=== PATIENT | female | born 1990 | race Caucasian/White ===

== ENCOUNTER 2018-03-05 21:16 | Emergency (ER) | payer MEDICAID ==
[2018-03-05] MEDS ORDERED: BUPRENORPHINE HCL 2 MG SUBLINGUAL TABLET SL ONE (22:47)
[2018-03-05] MEDS ORDERED: ONDANSETRON ODT 4 MG TAB (6 TAB/ER DISP) PO PRN (23:18)
--- NOTE | 2018-03-05 23:19 | ER Document Report ---
ED General - General Chief Complaint: Drug Abuse Stated Complaint: POSSIBLE WITHDRAWAL Time Seen by Provider: 03/05/18 22:32 Notes: Patient is a 27 year old female with a past medical history of opiate abuse currently being treated with Suboxone who presents with withdrawal symptoms. The patient relates that she moved from [place] 4 days ago and states that she has not had any Suboxone since that time. She notes tremulousness, insomnia, nausea, diarrhea and abdominal cramping similar to when she has chronic opiate withdrawal in the past she states that she is trying to get into a Suboxone clinic here but that is she is having some difficulty doing so. She denies any fever, vomiting, headache, neck pain, focal weakness or numbness. Nothing improves or worsens her symptoms since they started. Past Medical History - General Information source: Patient - Social History Smoking Status: Current Every Day Smoker Frequency of alcohol use: None Drug Abuse: None Lives with: Spouse/Significant other Family History: Reviewed & Not Pertinent Review of Systems - Review of Systems Notes: Constitutional: Negative for fever. HENT: Negative for sore throat. Eyes: Negative for visual changes. Cardiovascular: Negative for chest pain. Respiratory: Negative for shortness of breath. Gastrointestinal: Positive for abdominal cramping, nausea and diarrhea Genitourinary: Negative for dysuria. Musculoskeletal: Positive for body pain Skin: Negative for rash. Neurological: Negative for headaches, weakness or numbness. 10 point ROS negative except as marked above and in HPI. Physical Exam - Vital signs Vitals: Temp Pulse Resp BP Pulse Ox 98.2 F 98 18 126/99 H 100 03/05/18 21:25 03/05/18 21:25 03/05/18 21:25 03/05/18 21:25 03/05/18 21:25 Interpretation: Normal Notes: PHYSICAL EXAMINATION: GENERAL: Well-appearing, well-nourished and in no acute distress. HEAD: Atraumatic, normocephalic. EYES: Pupils equal round and reactive to light, extraocular movements intact, sclera anicteric, conjunctiva are normal. ENT: nares patent, oropharynx clear without exudates. Moist mucous membranes. NECK: Normal range of motion, supple without lymphadenopathy LUNGS: Breath sounds clear to auscultation bilaterally and equal. No wheezes rales or rhonchi. HEART: Regular rate and rhythm without murmurs ABDOMEN: Soft, nontender, normoactive bowel sounds. No guarding, no rebound. No masses appreciated. EXTREMITIES: Normal range of motion, no pitting or edema. No cyanosis. NEUROLOGICAL: No focal neurological deficits. Moves all extremities spontaneously and on command. PSYCH: Normal mood, normal affect. SKIN: Warm, Dry, normal turgor, no rashes or lesions noted. Course - Re-evaluation Re-evalutation: 03/05/18 23:19 Patient presents with concerns of withdrawing from opiates. She just moved to the area from [place], was on Suboxone but has not had the medication for 4 days. She is tremulous, anxious, reports nausea and loose stools but no vomiting. States he feels similar to when she has not had opiates in the past. She is requesting assistance with her withdrawal symptoms. She denies any acute suicidal or homicidal ideation. She is working to try to find an outpatient Suboxone provider. She has been given her dose of Suboxone here in the emergency department and will be sent home with gabapentin and clonidine as unfortunately I am unable to prescribe her Suboxone. At this time will discharge with return precautions and follow-up recommendations. Verbal discharge instructions given a the bedside and opportunity for questions given. Medication warnings reviewed. Patient is in agreement with this plan and has verbalized understanding of return precautions and the need for primary care follow-up in the next 24-72 hours. - Vital Signs Vital signs: Temp Pulse Resp BP Pulse Ox 98.4 F 85 16 104/80 99 03/05/18 23:34 03/05/18 23:34 03/05/18 23:34 03/05/18 23:34 03/05/18 23:34 Discharge - Discharge Clinical Impression: Opiate withdrawal Condition: Good Disposition: HOME, SELF-CARE Additional Instructions: Your seen today for concerns of withdrawing from opiates. Opiate withdrawal is very uncomfortable but is not dangerous. The acute withdrawal phase will last for approximately 1 week and will consist of body aches, headache, nausea, vomiting, diarrhea, and abdominal pain. Sleeping can be difficult. You may also feel depressed or anxious. After the acute withdrawal is finished, it is very common to have chronic opiate withdrawal that can last for months. This can consist of feeling depressed and having cravings for opiates. I strongly encourage you to enroll in an outpatient rehab program and consider going on a medication such as Suboxone to prevent relapse. You have also been sent home with a prescription for a medication called gabapentin. You have also been sent home with a prescription for clonidine which can be used up to 3 times daily for withdrawal symptoms. You may take 600 mg nightly again to assist with sleep and withdrawal symptoms. You may take the Zofran also known as ondansetron that you were sent home with as needed for nausea and vomiting. Please return if you become suicidal, have persistent vomiting that prevents you from being able to take fluids for more than 12 hours, you pass out, or you have any other symptoms that are worrisome to you. Prescriptions: Gabapentin 600 mg PO QHS #30 capsule Clonidine HCl 0.1 mg PO TID PRN #30 tablet PRN Reason:
[2018-03-05 23:37] VITALS: BP 104/80
== END 2018-03-05 23:37 | disposition home or self-care (01) ==
LOC: ER 21:16
DX: F11.23 Opioid dependence with withdrawal (principal); F17.200 Nicotine dependence, unspecified, uncomplicated
CPT/HCPCS: 99283; J0571

== ENCOUNTER 2018-03-10 00:01 | Emergency (ER) | payer MEDICAID, OTHER ==
--- NOTE | 2018-03-10 01:29 | ER Document Report ---
ED Medical Screen (RME) - General Chief Complaint: Medical Clearance Stated Complaint: DRUG WITHDRAWAL Time Seen by Provider: 03/10/18 01:26 Mode of Arrival: Ambulatory Information source: Patient Notes: Patient presents complaining of Suboxone withdrawal. Patient states she recently moved here from [place] and has not had any Suboxone for the past 4 days. Patient states she was here in the emergency department 4 days ago and was given some to help her symptoms. Patient complains of hot and cold chills, insomnia, abdominal cramps with nausea vomiting and diarrhea. I have greeted and performed a rapid initial assessment of this patient. A comprehensive ED assessment and evaluation of the patient, analysis of test results and completion of the medical decision making process will be conducted by additional ED providers. TRAVEL OUTSIDE OF THE [place] IN LAST 30 DAYS: No - Related Data Allergies/Adverse Reactions: No Known Allergies Allergy (Unverified 03/10/18 00:04) Past Medical History Renal/ Medical History: Denies: Hx Peritoneal Dialysis Physical Exam - General General appearance: Alert Notes: Mildly tremulous
[2018-03-10 02:00] LABS: APPEARANCE,URINE TURBID; BILIRUBIN,URINE NEGATIVE (NEGATIVE); COLOR,URINE YELLOW; GLUCOSE, URINE NEGATIVE (NEGATIVE); KETONES,URINE NEGATIVE (NEGATIVE); LEUKOCYTE ESTERASE,URINE NEGATIVE (NEGATIVE); NITRITE,URINE NEGATIVE (NEGATIVE); PROTEIN,URINE 30 mg/dL (NEGATIVE); URINE SPECIFIC GRAVITY 1.024; UROBILINOGEN,URINE NEGATIVE mg/dL (<2.0)
[2018-03-10 02:02] LABS: ABSOLUTE BASOPHILS # (AUTO) 0.1 10^3/uL (0.0-0.2); ABSOLUTE EOSINOPHILS # (AUTO) 0.1 10^3/uL (0.0-0.6); ABSOLUTE LYMPHOCYTES (AUTO) 2.1 10^3/uL (0.5-4.7); ABSOLUTE NEUT (AUTO) 7.4 10^3/uL (1.7-8.2); BASOPHILS % (AUTO) 0.5 % (0-2); EOSINOPHILS % (AUTO) 1.3 % (0-6); HEMATOCRIT 37.2 % (36.0-47.0); HEMOGLOBIN 12.5 g/dL (12.0-15.5); LYMPHOCYTES % (AUTO) 19.1 % (13-45); MEAN CORPUSCULAR HEMOGLOBIN 27.6 pg (27.0-33.4); MEAN CORPUSCULAR HGB CONC 33.6 g/dL (32.0-36.0); MEAN CORPUSCULAR VOLUME 82 fl (80-97); MONOCYTES % (AUTO) 9.7 % (3-13); PLATELET COUNT 255 10^3/uL (150-450); RED BLOOD COUNT 4.53 10^6/uL (3.72-5.28); RED CELL DISTRIBUTION WIDTH 16.1 % (11.5-14.0); SEGMENTED NEUTROPHILS % (AUTO) 69.4 % (42-78); TOTAL CELLS COUNTED % (AUTO) 100 %; WHITE BLOOD COUNT 10.7 10^3/uL (4.0-10.5)
[2018-03-10 02:17] LABS: ALANINE AMINOTRANSFERASE 52 U/L (9-52); ALBUMIN 4.1 g/dL (3.5-5.0); ALKALINE PHOSPHATASE 61 U/L (38-126); ANION GAP 14 (5-19); ASPARTATE AMINO TRANSFERASE 48 U/L (14-36); BILIRUBIN,DIRECT 0.3 mg/dL (0.0-0.4); BILIRUBIN,TOTAL 0.3 mg/dL (0.2-1.3); BLOOD UREA NITROGEN 15 mg/dL (7-20); CALCIUM 9.8 mg/dL (8.4-10.2); CARBON DIOXIDE 28 mmol/L (22-30); CHLORIDE 106 mmol/L (98-107); GLUCOSE 92 mg/dL (75-110); LIPASE 273.6 U/L (23-300); POTASSIUM 4.1 mmol/L (3.6-5.0); SODIUM 148.1 mmol/L (137-145); TOTAL PROTEIN 8.2 g/dL (6.3-8.2)
[2018-03-10] MEDS ORDERED: CLONIDINE HCL 0.1 MG TABLET PO ONE (03:49)
[2018-03-10] MEDS ORDERED: HYDROXYZINE PAMOATE 25 MG CAPSULE PO ONE (03:49)
[2018-03-10] MEDS ORDERED: ONDANSETRON ODT 4 MG TAB (6 TAB/ER DISP) PO PRN (03:49)
[2018-03-10] MEDS ORDERED: BUPRENORPHINE HCL 2 MG SUBLINGUAL TABLET SL ONE (04:12)
--- NOTE | 2018-03-10 04:17 | ER Document Report ---
ED General - General Mode of Arrival: Ambulatory Information source: Patient <GREGG APARICIO - Last Filed: 03/10/18 04:25> <BENNIE JOHNSON - Last Filed: 03/10/18 04:52> - General Chief Complaint: Medical Clearance Stated Complaint: DRUG WITHDRAWAL Time Seen by Provider: 03/10/18 01:26 Notes: Patient is a 77-year-old female with a history of heroin use presents to the emergency department complaining of Suboxone withdrawal. She states she recently moved here from [place] has not had any Suboxone for the past 4 days. She states she is waiting for her insurance to be approved so she can be seen at a clinic on Wednesday. She states she presented to the emergency department 4 days ago and received Suboxne which greatly helped her symptoms. She states she would only like another Suboxone dose to hold her over until she can be seen in the clinic. She complains hot and cold chills, insomnia, abdominal cramps with nausea, vomiting and diarrhea. (GREGG APARICIO) - Related Data Allergies/Adverse Reactions: No Known Allergies Allergy (Unverified 03/10/18 00:04) Past Medical History - General Information source: Patient - Social History Smoking Status: Current Every Day Smoker Frequency of alcohol use: None Drug Abuse: Other Family History: Reviewed & Not Pertinent Patient has suicidal ideation: No Patient has homicidal ideation: No <ALESSANDRAGREGG NGUYEN - Last Filed: 03/10/18 04:25> Review of Systems - Review of Systems Constitutional: See HPI, Diaphoresis EENT: No symptoms reported Cardiovascular: No symptoms reported Respiratory: No symptoms reported Gastrointestinal: See HPI, Abdominal pain, Diarrhea, Nausea, Vomiting Genitourinary: No symptoms reported Female Genitourinary: No symptoms reported Musculoskeletal: No symptoms reported Skin: No symptoms reported Hematologic/Lymphatic: No symptoms reported Neurological/Psychological: No symptoms reported -: Yes All other systems reviewed and negative <GRGEG APARICIO - Last Filed: 03/10/18 04:25> Physical Exam <GREGG APARICIO - Last Filed: 03/10/18 04:25> <BENNIE JOHNSON - Last Filed: 03/10/18 04:52> - Vital signs Vitals: Temp Pulse Resp BP Pulse Ox 98 F 94 16 120/76 99 08/30/18 04:36 03/10/18 04:36 03/10/18 04:36 03/10/18 04:36 03/10/18 04:36 - Notes Notes: GENERAL: Alert, appears uncomfortable. No acute distress. HEAD: Normocephalic, atraumatic. EYES: Pupils equal, round, and reactive to light. Extraocular movements intact. ENT: Oral mucosa moist, tongue midline. NECK: Full range of motion. Supple. Trachea midline. LUNGS: Clear to auscultation bilaterally, no wheezes, rales, or rhonchi. No respiratory distress. HEART: Regular rate and rhythm. No murmurs, gallops, or rubs. ABDOMEN: Soft, non-tender. Non-distended. Bowel sounds present in all 4 quadrants. EXTREMITIES: Moves all 4 extremities spontaneously. No edema, radial and dorsalis pedis pulses 2/4 bilaterally. No cyanosis. NEUROLOGICAL: Alert and oriented x3. Normal speech. PSYCH: Anxious. SKIN: Warm, dry, normal turgor. No rashes or lesions noted. (GREGG APARICIO) Course - Laboratory Result Diagrams: 03/10/18 01:25 03/10/18 01:25 <GREGG APARICIO - Last Filed: 03/10/18 04:25> - Laboratory Result Diagrams: 03/10/18 01:25 03/10/18 01:25 <BENNIE JOHNSON - Last Filed: 03/10/18 04:52> - Re-evaluation Re-evalutation: 03/10/18 04:44 Patient is a 27-year-old female who comes in stating that she is in opiate withdrawal. She informed me that Dr. Savage told her if she could not get into a Suboxone clinic to come back to the ER so that she did not buy anything on the street use heroin again. Patient is requesting Suboxone 8 mg which she was given Wednesday night. Given that this was promised to her by another attending , she will get a dose here tonight. She apparently has a follow-up with somebody in [place] that they found that we will prescribe her Suboxone. Blood work and urine otherwise benign. Stable for discharge. (BENNIE JOHNSON) - Vital Signs Vital signs: Temp Pulse Resp BP Pulse Ox 98 F 94 16 120/76 99 03/10/18 04:36 03/10/18 04:36 03/10/18 04:36 03/10/18 04:36 03/10/18 04:36 - Laboratory Laboratory results interpreted by me: 03/10/18 03/10/18 03/10/18 01:25 01:25 01:25 WBC 10.7 H RDW 16.1 H Sodium 148.1 H AST 48 H Urine Protein 30 H Discharge <GREGG APARICIO - Last Filed: 03/10/18 04:25> <BENNIE JOHNSON - Last Filed: 03/10/18 04:52> - Discharge Clinical Impression: Opiate withdrawal Condition: Stable Disposition: HOME, SELF-CARE Additional Instructions: Please follow-up with pain management as soon as you are able to do so. Prescriptions: Hydroxyzine Pamoate [Vistaril 25 mg Capsule] 25 mg PO BIDP PRN #14 capsule PRN Reason: Scribe Attestation: 03/10/18 04:52 I personally performed the services described in the documentation, reviewed and edited the documentation which was dictated to the scribe in my presence, and it accurately records my words and actions. (BENNIE JOHNSON) Scribe Documentation - Scribe Written by Say:: Say Elena, 03/10/2018 04:27 acting as scribe for :: Angelo <GREGG APARICIO - Last Filed: 03/10/18 04:25>
[2018-03-10 04:38] VITALS: BP 120/76
[2018-03-10 06:55] LABS: URINE AMPHETAMINES SCREEN NEGATIVE; URINE BARBITURATES SCREEN NEGATIVE; URINE BENZODIAZEPINES SCREEN NEGATIVE; URINE COCAINE SCREEN NEGATIVE; URINE MARIJUANA (THC) SCREEN NEGATIVE; URINE METHADONE SCREEN NEGATIVE; URINE PHENCYCLIDINE SCREEN NEGATIVE
== END 2018-03-10 04:38 | disposition home or self-care (01) ==
LOC: ER 00:01
DX: F11.23 Opioid dependence with withdrawal (principal); T50.996A Underdosing of other drugs, medicaments and biological substances, initial encounter; Z91.128 Patient's intentional underdosing of medication regimen for other reason; Z91.14 Patient's other noncompliance with medication regimen; R61 Generalized hyperhidrosis; R11.2 Nausea with vomiting, unspecified; R10.9 Unspecified abdominal pain; R19.7 Diarrhea, unspecified; F17.200 Nicotine dependence, unspecified, uncomplicated
CPT/HCPCS: 99284; 36415; 83690; 85025; 81025; 80053; 81001; 80307; J0571

== ENCOUNTER 2018-03-13 16:04 | Emergency (ER) | payer OTHER, MEDICAID ==
[2018-03-13 16:09] VITALS: BP 126/84
--- NOTE | 2018-03-13 16:29 | ER Document Report ---
ED General - General Chief Complaint: Nausea/Vomiting Stated Complaint: NAUSEA/COLD CHILLS Time Seen by Provider: 03/13/18 16:14 TRAVEL OUTSIDE OF THE [place] IN LAST 30 DAYS: No - HPI Patient complains to provider of: Nausea vomiting withdrawal symptoms from Suboxone Notes: Patient coming in states recently moved from [place]. Patient states she was on Suboxone due to her when used taking 8 mg twice a day from her Suboxone clinic in [place]. Patient states she is at the follow-up with a Suboxone clinic here in [place] does have an appointment to follow-up on Wednesday in [facility]. Patient states currently having nausea vomiting symptoms of withdrawal. Patient states she has not received any Suboxone in the last 4 days. Patient otherwise looks to be no obvious distress upon my evaluation. - Related Data Allergies/Adverse Reactions: No Known Allergies Allergy (Unverified 03/10/18 00:04) Past Medical History - Social History Smoking Status: Unknown if Ever Smoked Family History: Reviewed & Not Pertinent Renal/ Medical History: Denies: Hx Peritoneal Dialysis Review of Systems - Review of Systems Constitutional: No symptoms reported EENT: No symptoms reported Cardiovascular: No symptoms reported Respiratory: No symptoms reported Gastrointestinal: Nausea, Vomiting Genitourinary: No symptoms reported Female Genitourinary: No symptoms reported Musculoskeletal: No symptoms reported Skin: No symptoms reported Hematologic/Lymphatic: No symptoms reported Neurological/Psychological: No symptoms reported -: Yes All other systems reviewed and negative Physical Exam - Vital signs Vitals: Temp Pulse Resp BP Pulse Ox 97.7 F 106 H 14 126/84 H 100 03/13/18 16:08 03/13/18 16:08 03/13/18 16:08 03/13/18 16:08 03/13/18 16:08 Interpretation: Normal - General General appearance: Appears well, Alert - HEENT Head: Normocephalic, Atraumatic Eyes: Normal Pupils: PERRL - Respiratory Respiratory status: No respiratory distress Chest status: Nontender Breath sounds: Normal Chest palpation: Normal - Cardiovascular Rhythm: Regular Heart sounds: Normal auscultation Murmur: No - Abdominal Inspection: Normal Distension: No distension Bowel sounds: Normal Tenderness: Nontender Organomegaly: No organomegaly - Back Back: Normal, Nontender - Extremities General upper extremity: Normal inspection, Nontender, Normal color, Normal ROM , Normal temperature General lower extremity: Normal inspection, Nontender, Normal color, Normal ROM , Normal temperature, Normal weight bearing. No: Daly's sign - Neurological Neuro grossly intact: Yes Cognition: Normal Orientation: AAOx4 Rick Coma Scale Eye Opening: Spontaneous Rick Coma Scale Verbal: Oriented Ripton Coma Scale Motor: Obeys Commands Rick Coma Scale Total: 15 Speech: Normal Motor strength normal: LUE, RUE, LLE, RLE Sensory: Normal - Psychological Associated symptoms: Normal affect, Normal mood - Skin Skin Temperature: Warm Skin Moisture: Dry Skin Color: Normal Course - Re-evaluation Re-evalutation: 03/13/18 20:48 Reviewed patient's past visits so that she was recently here on the and on the for a dose of Suboxone which was given to her each time. This is different from the patient's story of not receiving Suboxone the last 4 days. At this time patient looks to be no obvious distress. Explained to the patient that I would not give her any further Suboxone I do believe my opinion patient receiving 1 dose in the and 1 dose on the should be tapered enough to allow herself to attend her appointment on Wednesday. Patient was also given during this visit gabapentin clonidine and Atarax. Patient states she has been taking his medications however they have not helped out with her symptoms. I explained to the patient I would give her Phenergan recommend she continue medications as previous to prescribed however at this time not licensed to rx for Suboxone. States understanding will be discharged home 03/13/18 20:49 - Vital Signs Vital signs: Temp Pulse Resp BP Pulse Ox 97.7 F 106 H 14 126/84 H 100 03/13/18 16:08 03/13/18 16:08 03/13/18 16:08 03/13/18 16:08 03/13/18 16:08 Discharge - Discharge Clinical Impression: Suboxone withdrawals Nausea & vomiting Qualifiers: Vomiting type: unspecified Vomiting Intractability: unspecified Qualified Code( s): R11.2 - Nausea with vomiting, unspecified Condition: Good Disposition: HOME, SELF-CARE Additional Instructions: I am unable to provide you with any further Suboxone. I would highly recommend she continue the medications previously prescribed you by the previous providers. I will also give the Phenergan to help out with your nausea. Return to ER for any other concerning symptoms make sure he follow-up with your Suboxone clinic as scheduled Prescriptions: Promethazine HCl [Phenergan 25 mg Tablet] 1 - 2 tab PO Q6H PRN #15 tablet PRN Reason: Forms: Return to Work
== END 2018-03-13 16:33 | disposition home or self-care (01) ==
LOC: ER 16:04
DX: F11.23 Opioid dependence with withdrawal (principal); R11.2 Nausea with vomiting, unspecified
CPT/HCPCS: 99283